=== PATIENT | female | born 1985 | race Caucasian/White ===

== ENCOUNTER 2020-10-13 13:45 | Emergency (ER) | payer MEDICARE ==
[~2020-10-13] VITALS: Ht 172.7 cm; Wt 59.0 kg
[2020-10-13] MEDS ORDERED: GENTAMICIN SULFATE 0.1% OINT 15 GM TUBE TP ONE (14:00)
[2020-10-13] MEDS ORDERED: NAPROXEN 500 MG TABLET PO ONE (14:00)
[2020-10-13] MEDS ORDERED: SILVER SULFADIAZINE 1% CREAM 50 GM TP ONE (14:00)
[2020-10-13] MEDS ORDERED: HYDR25CA PO (14:04)
[2020-10-13] MEDS ORDERED: GENT3.5O7 TOP (14:04)
[2020-10-13] MEDS ORDERED: GABA600T12 PO (14:04)
[2020-10-13] MEDS ORDERED: SILV50CR32 TP (14:04)
[2020-10-13] MEDS ORDERED: NAPR-1009 PO (14:04)
[2020-10-13] MEDS ORDERED: NAPROXEN 500 MG TABLET ONE (14:09)
[2020-10-13] MEDS ORDERED: SILVER SULFADIAZINE 1% CREAM 25 GM TUBE TP ONE (14:09)
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
[2020-10-13 14:38] VITALS: BP 130/89
--- NOTE | 2020-10-13 14:39 | NUR ---
Patient given written and verbal discharge instructions. Patient verbalizes understanding of instructions. Patient is ambulatory with steady gait. Refuses offer of [facility] placement. Patient given list of available shelters in surrounding area.
== END 2020-10-13 14:39 | disposition home or self-care (01) ==
LOC: ER 13:45
DX: T22.232A Burn of second degree of left upper arm, initial encounter (principal); T20.26XA Burn of second degree of forehead and cheek, initial encounter; T31.0 Burns involving less than 10% of body surface; X00.8XXA Other exposure to uncontrolled fire in building or structure, initial encounter; Y93.89 Activity, other specified; Y92.89 Other specified places as the place of occurrence of the external cause; Z59.0 Homelessness; Z88.0 Allergy status to penicillin
CPT/HCPCS: 16020; A4217; A4663